=== PATIENT | female | born 1995 | race Two or more races ===

== ENCOUNTER 2018-07-21 00:21 | Emergency (ER) | payer OTHER ==
[~2018-07-21] VITALS: Ht 165.1 cm; Wt 68.0 kg
[2018-07-21] MEDS ORDERED: KETOROLAC TROMETH 60MG/2ML VIAL IM ONE (07:30)
[2018-07-21 07:41] VITALS: BP 119/85
== END 2018-07-21 07:55 | disposition home or self-care (01) ==
LOC: ER 00:25
DX: S39.012A Strain of muscle, fascia and tendon of lower back, initial encounter (principal); X50.9XXA Other and unspecified overexertion or strenuous movements or postures, initial encounter; Y93.64 Activity, baseball; Y92.89 Other specified places as the place of occurrence of the external cause; Y99.8 Other external cause status
CPT/HCPCS: 81025; 96372; 99283; J1885

== ENCOUNTER 2021-05-27 03:20 | Emergency (ER) | payer OTHER ==
[~2021-05-27] VITALS: Ht 162.6 cm; Wt 77.1 kg
[2021-05-27 03:21] VITALS: BP 141/88
== END 2021-05-27 04:23 | disposition left against medical advice (07) ==
LOC: ER 03:27
DX: F41.9 Anxiety disorder, unspecified (principal); Z53.21 Procedure and treatment not carried out due to patient leaving prior to being seen by health care provider

== ENCOUNTER 2021-10-31 09:36 | Observation (INO) | payer OTHER ==
[~2021-10-31] VITALS: Ht 162.6 cm; Wt 90.7 kg
[2021-10-31] MEDS ORDERED: ALBUAER3 IN (10:30)
[2021-10-31] MEDS ORDERED: PREN-96 PO (10:30)
== END 2021-10-31 10:55 | disposition home or self-care (01) ==
LOC: LDRP 09:36 → UNDOADMOB 09:36 → LDRP 09:55 → UNDODISOB 10:55
PROVIDERS: ADMIT Obstetrics & Gynecology; ATTEND Obstetrics & Gynecology
DX: O26.892 Other specified pregnancy related conditions, second trimester (principal); R10.31 Right lower quadrant pain; R10.32 Left lower quadrant pain; Z3A.22 22 weeks gestation of pregnancy
CPT/HCPCS: 59025; 81002; 94760; G0378

== ENCOUNTER 2022-01-16 19:17 | Observation (INO) | payer OTHER ==
[~2022-01-16] VITALS: Ht 165.1 cm; Wt 102.1 kg
[~2022-01-16 19:17] MED LIST: ALBUAER3 IN; PREN-96 PO
== END 2022-01-16 22:00 | disposition home or self-care (01) ==
LOC: LDRP 19:17
PROVIDERS: ADMIT Obstetrics & Gynecology; ATTEND Obstetrics & Gynecology
DX: O62.9 Abnormality of forces of labor, unspecified (principal); Z3A.33 33 weeks gestation of pregnancy
CPT/HCPCS: 59025; 81002; 84112; 87210; 94760; G0378; Q0114

== ENCOUNTER 2022-02-28 11:34 | Observation (INO) | payer OTHER | END 2022-02-28 14:10 | disposition home or self-care (01) | LOC: LDRP 11:34 | PROVIDERS: ADMIT Obstetrics & Gynecology; ATTEND Obstetrics & Gynecology | DX: O26.893 Other specified pregnancy related conditions, third trimester (principal); R10.2 Pelvic and perineal pain; Z3A.39 39 weeks gestation of pregnancy | CPT/HCPCS: 59025; 81002; G0378 ==

== ENCOUNTER 2022-03-09 09:08 | Observation (INO) | payer OTHER ==
[~2022-03-09] VITALS: Ht 165.1 cm; Wt 90.7 kg
== END 2022-03-09 12:50 | disposition home or self-care (01) ==
LOC: LDRP 09:08
PROVIDERS: ADMIT Obstetrics & Gynecology; ATTEND Obstetrics & Gynecology
DX: O48.0 Post-term pregnancy (principal); O62.9 Abnormality of forces of labor, unspecified; Z3A.40 40 weeks gestation of pregnancy
CPT/HCPCS: 59025; 76805; 76818; 81002; 94760; G0378

== ENCOUNTER 2022-03-11 13:16 | Observation (INO) | payer OTHER | END 2022-03-11 14:30 | disposition home or self-care (01) | LOC: UNDOADMOB 13:16 → LDRP 13:16 | PROVIDERS: ADMIT Obstetrics & Gynecology; ATTEND Obstetrics & Gynecology | DX: O48.0 Post-term pregnancy (principal); Z3A.40 40 weeks gestation of pregnancy | CPT/HCPCS: 59025; 76818; 81002; 94760; G0378 ==

== ENCOUNTER 2022-03-13 00:15 | Inpatient (IN) | payer MEDICAID, OTHER ==
[~2022-03-13] VITALS: Ht 165.1 cm; Wt 104.3 kg
[2022-03-13] MEDS ORDERED: PENICILLIN G POT 5MIL/D5 50ML 50 ML IV ONE (02:00)
[2022-03-13] MEDS ORDERED: LACT. RINGERS/OXYTOCIN 20UNITS 500 ML IV ONE ×2 (02:00→02:30)
[2022-03-13] MEDS ORDERED: PROMETHAZINE HCL 25 MG/ML 1ML IV PRN (02:00)
[2022-03-13] MEDS ORDERED: BUTORPHANOL TARTRATE 2 MG/1 ML VIAL IV PRN (02:00)
[2022-03-13] MEDS ORDERED: PHISODERM TOP SOLN 240ML BTL TOP PRN (02:00)
[2022-03-13] MEDS ORDERED: WITCH HAZEL-GLYCERIN PAD TOP PRN (02:00)
[2022-03-13] MEDS ORDERED: DERMOPLAST 60ML BOTTLE TOP PRN (02:00)
[2022-03-13] MEDS ORDERED: LIDOCAINE 2%HCL (LOCAL ANESTH.) INJ 20ML MDV IJ PRN (02:00)
[2022-03-13] MEDS: LACTATED RINGER'S 1,000 ML IV SCH ×2 (02:30→07:14)
[2022-03-13 02:33] LABS: Basophils # (auto) 0.1 10 ^3/uL (0-0.2); Basophils % (auto) 0.4 % (0.0-2.0); Eosinophils # (auto) 0.3 10 ^3/uL (0-0.8); Eosinophils % (auto) 2.7 % (0.0-7.0); Hematocrit 33.3 % (36.0-46.0); Lymphocytes # (auto) 2.4 10 ^3/uL (0.4-5.4); Lymphocytes % (auto) 19.2 % (10.0-50.0); Mean Corpuscular Hgb Conc. 32.9 g/dL (32.0-36.0); Mean Corpuscular Volume 82.1 fL (80.0-100.0); Monocytes # (auto) 0.9 10 ^3/uL (0-1.3); Monocytes % (auto) 7.6 % (0.0-12.0); Neutrophils # (auto) 8.6 10 ^3/uL (1.6-8.6); Neutrophils % (auto) 70.1 % (37.0-80.0); Red Blood Cells 4.06 10^6/uL (4.0-5.20); Red Cell Distribution Width 15.5 % (11.8-14.3); White Blood Cell 12.3 10^3/uL (4.4-10.8)
[2022-03-13 02:43] LABS: Urine Amorphous Crystal MOD /hpf (None Seen); Urine Bacteria FEW /hpf (None Seen); Urine Blood Negative /uL (Negative); Urine Mucus FEW (None Seen); Urine Specific Gravity 1.024 (1.001-1.035); Urine WBC 3 /hpf (0 - 5)
[2022-03-13 02:49] LABS: INR 0.93 (0.9-1.15); Partial Thromboplastin Time 25.7 sec (24.6-33.4)
[2022-03-13 02:51] LABS: Alcohol, Urine < 3.0 mg/dL (0-10); Amphetamine Screen, Urine NEGATIVE (NEGATIVE); Barbiturate Scree,Urine NEGATIVE (NEGATIVE); Benzodiazephine Screen, Urine NEGATIVE (NEGATIVE); Cannabinoid Screen, Urine NEGATIVE (NEGATIVE); Cocaine Screen, Urine NEGATIVE (NEGATIVE); Opiate Scree,Urine NEGATIVE (NEGATIVE); Phencyclidine Screen, Urine NEGATIVE (NEGATIVE)
[2022-03-13 02:51] LABS: Albumin 2.7 g/dL (3.4-5.0); BUN/Creatinine Ratio 24.6; Calcium 9.5 mg/dL (8.5-10.1)
[2022-03-13 02:59] LABS: Bilirubin, Total 0.2 mg/dL (0.2-1.0)
[2022-03-13] MEDS: miSOPROStol 50 MCG per PRE-CUT 1/2 TAB PO PRN ×3 (06:08→14:46)
[2022-03-13] MEDS: PENICILLIN G POTASSIUM 2,500,000 UNITS in D5W 5% 50 ML IV SCH ×5 (06:42→22:18)
[2022-03-13] MEDS ORDERED: PROMETHAZINE HCL 25 MG/ML 1ML IV STA (10:41)
[2022-03-13] MEDS: BUTORPHANOL TARTRATE 2 MG/1 ML VIAL IV PRN ×2 (10:44→18:49)
[2022-03-13] MEDS ORDERED: ePHEDrine SULFATE 50 MG/ML AMP IV ONE (19:15)
[2022-03-13] MEDS ORDERED: ROPIVACAINE HCL 200 ML EPI SCH (19:15)
[2022-03-13] MEDS ORDERED: LACTATED RINGER'S 1,000 ML IV ONE (19:15)
[2022-03-13] MEDS ORDERED: fentaNYL CITRATE 100 MCG/2 ML VL IV ONE ×2 (19:15→23:15)
[2022-03-13] MEDS ORDERED: NALOXONE HCL 0.4 MG/ML VIAL IV ONE (19:15)
[2022-03-13] MEDS ORDERED: fentaNYL CITRATE 100 MCG/2 ML VL ONE (21:47)
[2022-03-13] MEDS: ceFAZolin 1GM/50ML 50 ML IV SCH (22:59)
[2022-03-14] MEDS: miSOPROStol 50 MCG per PRE-CUT 1/2 TAB PO PRN (00:13)
[2022-03-14] MEDS: PENICILLIN G POTASSIUM 2,500,000 UNITS in D5W 5% 50 ML IV SCH ×3 (02:17→10:22)
[2022-03-14] MEDS ORDERED: ACETAMINOPHEN 325 MG TAB PO ONE (03:15)
[2022-03-14] MEDS: LACTATED RINGER'S 1,000 ML IV SCH (03:19)
[2022-03-14] MEDS ORDERED: ONDANSETRON HCL 4 MG/2 ML VIAL IV ONE (03:30)
[2022-03-14] MEDS ORDERED: TERBUTALINE SULFATE 1 MG/ML 1ML VIAL SC PRN ×2 (06:00→07:00)
[2022-03-14] MEDS: ceFAZolin 1GM/50ML 50 ML IV SCH ×3 (06:38→21:53)
[2022-03-14] MEDS ORDERED: LACT. RINGERS/OXYTOCIN 20UNITS 1,000 ML IV SCH ×2 (07:00)
[2022-03-14 08:06] LABS: RPR Non Reactive (Non Reactive)
[2022-03-14] MEDS ORDERED: miSOPROStol 100 mcg TAB PR PRN (11:45)
[2022-03-14] MEDS ORDERED: METHYLERGONOVINE MALEATE 0.2 MG/ML AMP IM PRN (11:45)
[2022-03-14] MEDS ORDERED: miSOPROStol 100 mcg TAB ONE (12:04)
[2022-03-14] MEDS ORDERED: METHYLERGONOVINE MALEATE 0.2 MG/ML AMP IM ONE (12:05)
[2022-03-14] MEDS ORDERED: ONDANSETRON ODT 4 MG TAB PO PRN (12:45)
[2022-03-14] MEDS: IBUPROFEN 600 MG TAB PO PRN ×2 (13:25→23:46)
[2022-03-14 15:00] VITALS: BP 129/78
[2022-03-14 19:14] VITALS: BP 112/47
[2022-03-14] MEDS: ACETAMINOPHEN 325 MG TAB PO PRN (19:41)
[2022-03-14] MEDS: DOCUSATE SOD 100 MG CAP PO SCH (21:53)
[2022-03-14 22:53] VITALS: BP 101/57
[2022-03-15 03:00] VITALS: BP 99/63
[2022-03-15] MEDS: ceFAZolin 1GM/50ML 50 ML IV SCH ×3 (05:57→22:21)
[2022-03-15] MEDS: IBUPROFEN 600 MG TAB PO PRN ×2 (06:48→13:09)
[2022-03-15 07:00] VITALS: BP 99/70
[2022-03-15] MEDS: DOCUSATE SOD 100 MG CAP PO SCH ×2 (11:37→22:22)
[2022-03-15 12:30] VITALS: BP 106/65
[2022-03-15 15:30] VITALS: BP 110/62
[2022-03-15] MEDS: ACETAMINOPHEN 325 MG TAB PO PRN (18:51)
[2022-03-15 19:30] VITALS: BP 128/72
[2022-03-15 22:44] VITALS: BP 114/74
[2022-03-16] MEDS: IBUPROFEN 600 MG TAB PO PRN (00:42)
[2022-03-16 03:00] VITALS: BP 119/68
[2022-03-16] MEDS: ACETAMINOPHEN 325 MG TAB PO PRN (03:12)
[2022-03-16] MEDS: ceFAZolin 1GM/50ML 50 ML IV SCH (05:33)
[2022-03-16 07:00] VITALS: BP 117/77
[2022-03-16 11:20] VITALS: BP 102/66
== END 2022-03-16 12:00 | disposition home or self-care (01) | DRG 560 ==
LOC: LDRP 00:15 → OBSVTOIN 01:55 → LDRP 03-14 14:36
PROVIDERS: ADMIT Obstetrics & Gynecology; ATTEND Obstetrics & Gynecology
PROC: 10E0XZZ Delivery of Products of Conception, External Approach (ICD-10-PCS; principal; 2022-03-14)
PROC: 0W8NXZZ Division of Female Perineum, External Approach (ICD-10-PCS; 2022-03-14)
PROC: 0KQM0ZZ Repair Perineum Muscle, Open Approach (ICD-10-PCS; 2022-03-14)
PROC: 3E0R3BZ Introduction of Anesthetic Agent into Spinal Canal, Percutaneous Approach (ICD-10-PCS; 2022-03-14)
PROC: 00HU33Z Insertion of Infusion Device into Spinal Canal, Percutaneous Approach (ICD-10-PCS; 2022-03-14)
DX: O48.0 Post-term pregnancy (principal); Z37.0 Single live birth; O41.1230 Chorioamnionitis, third trimester, not applicable or unspecified; Z20.822 Contact with and (suspected) exposure to COVID-19; Z3A.41 41 weeks gestation of pregnancy; O36.63X0 Maternal care for excessive fetal growth, third trimester, not applicable or unspecified; O69.81X0 Labor and delivery complicated by cord around neck, without compression, not applicable or unspecified; O70.1 Second degree perineal laceration during delivery
CPT/HCPCS: 36415; 59025; 59409; 80053; 80307; 81001; 84112; 85025; 85610; 85730; 86592; 86850; 86900; 86901; 87426; 94760; 96360; 96361; 96365; 96366; 96374; 96375; G0378; J0690; J2405; J2540; J2590; J7060